=== PATIENT | female | born 1990 ===

== ENCOUNTER 2019-02-10 20:42 | Outpatient (REF) | payer SELFPAY ==
[2019-02-10 21:16] LABS: ALT 61 U/L (14-59); AST 23 U/L (15-37); Albumin 4.5 g/dL (3.4-5.0); Alkaline Phosphatase 67 U/L (46-116); Anion Gap 9.5 mmol/L (3-11); BUN 10 mg/dL (7-18); Bilirubin, Total 0.3 mg/dL (0.2-1.0); CO2 24.5 mmol/L (21.0-32.0); CREATININE 0.77 mg/dL (0.55-1.02); Calcium 8.9 mg/dL (8.5-10.1); Chloride 106 mmol/L (98-107); Glucose 72 mg/dL (74-106); Potassium 3.5 mmol/L (3.5-5.1); Sodium 140 mmol/L (136-145)
== END 2019-02-10 21:02 ==
LOC: NCHCN 20:42
PROVIDERS: Visit Provider Family Medicine
DX: R74.8 Abnormal levels of other serum enzymes (principal)
CPT/HCPCS: 80053

== ENCOUNTER 2019-04-07 13:48 | Outpatient (REF) | payer SELFPAY ==
--- NOTE | 2019-04-07 12:15 | PAPFT_PTH ---
PATIENT: Lacey Helm LOC: [facility] U#:[id number] AGE/SX: 28/F ROOM: RE04/07/[address]: Andrzej Pittman : 1990 BED: DIS: 04/07/2019 SPEC #: [id number] RECD: 04/10/19 12:38 STATUS: CASA RECliff #: [id number] BROOKS: 04/07/19 12:[address]: Andrzej Pittman DEPT: [facility] Cytology RECD BY: Rhonda Lomas Tissues: 1 - CX/ENDOCX FOR PAP SMEARS Procedures: PAP THIN PREP/[facility] Screening HPV DNA PROBE Comments: [id number]
== END 2019-04-07 14:08 ==
LOC: NCHCN 13:48
PROVIDERS: Visit Provider Family Medicine
DX: Z12.4 Encounter for screening for malignant neoplasm of cervix (principal); Z00.00 Encounter for general adult medical examination without abnormal findings
CPT/HCPCS: 88142; 87624

== ENCOUNTER 2020-12-10 19:34 | Outpatient (REF) | payer BC, SELFPAY ==
[2020-12-10 14:10] LABS: ALT 29 U/L (14-59); AST 15 U/L (15-37); Albumin 4.3 g/dL (3.4-5.0); Alkaline Phosphatase 43 U/L (46-116); Anion Gap 9.7 mmol/L (3-11); BUN 17 mg/dL (7-18); Bilirubin, Total 0.2 mg/dL (0.2-1.0); CO2 24.3 mmol/L (21.0-32.0); CREATININE 0.8 mg/dL (0.55-1.02); Calcium 9.2 mg/dL (8.5-10.1); Chloride 108 mmol/L (98-107); Glucose 79 mg/dL (74-106); Potassium 4.3 mmol/L (3.5-5.1); Sodium 142 mmol/L (136-145); Total Protein 7.7 g/dL (6.4-8.2)
== END 2020-12-10 19:35 | disposition home or self-care (01) ==
LOC: NCHCN 19:34
PROVIDERS: Visit Provider Family Medicine
DX: G43.009 Migraine without aura, not intractable, without status migrainosus (principal); R74.8 Abnormal levels of other serum enzymes
CPT/HCPCS: 80053

== ENCOUNTER 2024-03-07 19:40 | Outpatient (REF) | payer BC, SELFPAY | END 2024-03-07 19:41 | disposition home or self-care (01) | LOC: LBN 19:40 | PROVIDERS: Visit Provider Nurse Practitioner Family | DX: R10.9 Unspecified abdominal pain (principal) | CPT/HCPCS: 87086 ==

== ENCOUNTER 2024-12-14 16:10 | Outpatient (REF) | payer BC, SELFPAY ==
[2024-12-14 21:38] LABS: HCG Quant, Pregnancy < 1 mIU/mL (1-3)
== END 2024-12-14 16:11 | disposition home or self-care (01) ==
LOC: NCHCN 16:10
PROVIDERS: Visit Provider Family Medicine
DX: O03.9 Complete or unspecified spontaneous abortion without complication (principal)
CPT/HCPCS: 84702